=== PATIENT | female | born 1990 | race Caucasian/White ===

== ENCOUNTER 2016-12-30 16:18 | Emergency (ER) | payer SELFPAY ==
[2016-12-30 16:42] VITALS: BP 135/82; TEMP 101.8; O2SAT 97
[2016-12-30] MEDS ORDERED: DOXYCYCLINE HYCLATE CAP 100 MG CAP PO ONE (16:57)
[2016-12-30] MEDS ORDERED: SULFA/TRIMETH 800/160 (DS) TAB 1 EA TAB PO ONE (16:57)
[2016-12-30] MEDS ORDERED: cefTRIAXone SODIUM 1 GM VIAL IM ONE (16:57)
[2016-12-30] MEDS ORDERED: LIDOCAINE 1% 10 ML VIAL INJ ONE (17:34)
--- NOTE | 2016-12-30 17:37 | ED.PDOC ---
History of Present Illness - General Chief Complaint: Skin/Abrasion/Tear Stated Complaint: redness to leg Time Seen by Provider: 12/30/16 16:57 Source: patient Exam Limitations: no limitations - History of Present Illness Initial Comments: the patient is a 26-year-old female presenting to the emergency room secondary to fevers and a mild headache as well as what appears to be a mild cellulitis to the right lower extremity starting about 2 days ago. Oral intake has been fair. No vomiting. No diarrhea. No sick. Near-syncope. No meningeal signs. No altered mental status. She has not had any recent abscesses. Erythema to the right lower leg is circumferential and fairly extensive. There is increased heat. No evidence of any underlying abscess. The patient also has a area of approximately 10 cm in diameter to her proximal right thigh that also appears to have a mild cellulitis. No obvious abscess present there either. No other areas of cellulitis. The patient is in no acute distress. Severity: moderate Improving Factors: nothing Worsening Factors: nothing Associated Symptoms: fever/chills, malaise Allergies/Adverse Reactions: Allergies Amoxicillin [From Amoxil] Allergy (Verified 04/26/15 14:23) Home Medications: Ambulatory Orders Doxycycline (Monohydrate) [Doxycycline Monohydrate] 100 mg PO BID #10 cap Sulfa/Trimeth 800/160 (Ds) Tab [Bactrim DS Tab] 1 ea PO BID #10 tab 12/30/16 Review of Systems - Review of Systems Constitutional: States: fever, malaise EENTM: States: no symptoms reported Respiratory: States: no symptoms reported Cardiology: States: no symptoms reported Gastrointestinal/Abdominal: States: no symptoms reported Genitourinary: States: no symptoms reported Musculoskeletal: States: no symptoms reported Skin: States: see HPI Neurological: States: no symptoms reported Endocrine: States: no symptoms reported All other Systems: No Change from Baseline Past Medical History (General) - Patient Medical History Hx Seizures: No Hx Stroke: No Hx Cardiac Disorders: No Hx Congestive Heart Failure: No Hx Hypertension: No Hx Diabetes: No Hx MRSA: No - Vaccination History Hx Tetanus, Diphtheria Vaccination: Yes Hx Influenza Vaccination: No Hx Pneumococcal Vaccination: No - Social History Hx Tobacco Use: Yes - Female History Patient is a Female of Child Bearing Age (10 -59 yrs old): Yes Patient : No Family Medical History - Family History Mother Family History: No Known Living Status: Still Living Physical Exam - Physical Exam General Appearance: Alert, Comfortable, No apparent distress Eye Exam: bilateral normal Ears, Nose, Throat: hearing grossly normal, normal ENT inspection, normal pharynx Neck: non-tender, full range of motion, supple Respiratory: chest non-tender, lungs clear, normal breath sounds, no respiratory distress, no accessory muscle use Cardiovascular/Chest: normal peripheral pulses, regular rate, rhythm, no edema Peripheral Pulses: radial,right: 2+, radial,left: 2+, dorsalis pedis,right: 2+, dorsalis pedis,left: 2+, posterior tibialis,right: 2+, posterior tibialis,left: 2+ Gastrointestinal/Abdominal: normal bowel sounds, non tender, soft Rectal Exam: deferred Back Exam: normal inspection, no CVA tenderness, no vertebral tenderness Extremity: normal range of motion, no pedal edema, no calf tenderness, normal capillary refill, other - cellulitis as described above 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 She has been encouraged to trace out the erythema when she gets home and also take a picture with her cell phone after she does, for comparison in 1-2 days. The patient received a dose of Rocephin here as well as a dose of Bactrim and doxycycline. She will be placed on Bactrim and doxycycline for the next 5 days. She needs to follow up with her primary care doctor early next week for reevaluation. A blood culture has been performed. CBC showed a white count of 9000 only. Motrin and Tylenol can be used to help with the headache and fever. She needs to increase her fluid intake. ER warnings were given. - Results/Orders Results/Orders: Laboratory Tests 12/30/16 17:15 WBC 9.7 RBC 4.19 L Hgb 12.9 Hct 39.3 MCV 93.7 MCH 30.7 MCHC 32.9 L RDW 14.2 Plt Count 134 MPV 9.7 Absolute Neuts (auto) 8.00 H Absolute Lymphs (auto) 1.30 Absolute Monos (auto) 0.30 Absolute Eos (auto) 0.00 Absolute Basos (auto) 0.00 Neutrophils % 83.2 H Lymphocytes % 13.2 L Monocytes % 3.1 Eosinophils % 0.2 L Basophils % 0.3 blood culture has been performed. Departure - Departure Clinical Impression: Cellulitis Qualifiers: Site of cellulitis of extremity: lower extremity Laterality: right Disposition: Discharge to Home or Self Care Condition: Fair Departure Forms: ED Discharge - Pt. Copy, Patient Portal Self Enrollment Instructions: DI for Cellulitis -- Adult Diet: regular diet Activity: increase activity as tolerated Prescriptions: Doxycycline (Monohydrate) [Doxycycline Monohydrate] 100 mg PO BID #10 cap Sulfa/Trimeth 800/160 (Ds) Tab [Bactrim DS Tab] 1 ea PO BID #10 tab Home Medications: Ambulatory Orders Doxycycline (Monohydrate) [Doxycycline Monohydrate] 100 mg PO BID #10 cap Sulfa/Trimeth 800/160 (Ds) Tab [Bactrim DS Tab] 1 ea PO BID #10 tab 12/30/16 Additional Instructions: the patient is a 26-year-old female presenting with cellulitis of the right lower extremity. She has been encouraged to trace out the erythema when she gets home and also take a picture with her cell phone after she does, for comparison in 1-2 days. The patient received a dose of Rocephin here as well as a dose of Bactrim and doxycycline. She will be placed on Bactrim and doxycycline for the next 5 days. She needs to follow up with her primary care doctor early next week for reevaluation. A blood culture has been performed. CBC showed a white count of 9000 only. Motrin and Tylenol can be used to help with the headache and fever. She needs to increase her fluid intake. ER warnings were given.
== END 2016-12-30 17:45 | disposition home or self-care (01) ==
LOC: ER 16:18
DX: L03.115 Cellulitis of right lower limb (principal); Z87.891 Personal history of nicotine dependence; Z88.3 Allergy status to other anti-infective agents
CPT/HCPCS: 36415; 85025; 87040; J0696

== ENCOUNTER 2018-03-26 15:11 | Emergency (ER) | payer OTHER ==
[2018-03-26 15:42] VITALS: TEMP 97
[2018-03-26] MEDS ORDERED: SUCRALFATE 1 GM/10 ML 1 GM UD PO ONE (15:50)
[2018-03-26] MEDS ORDERED: ALUM & MAG HYDROX-SIMETHICONE 30 ML, LIDOCAINE VISCOUS 2% 15 ML PO ONE ×2 (15:50)
--- NOTE | 2018-03-26 15:53 | ED.PDOC ---
History of Present Illness - General Chief Complaint: GI Problem Stated Complaint: abdominal pain Time Seen by Provider: 03/26/18 15:50 Source: patient, RN notes reviewed Exam Limitations: no limitations Additional Information: 27 YEAR OLD COMPLAINTS OF PAIN IN THE UPPER ABDOMEN NON RADIATING NO ASSOCIATED NAUSEA VOMITING NO FEVER CHILLS NO INTOLERANCE TO FATTY MEAL HER PAIN IS AGGRAVATED BY SPICEY FOOD SHE HAS HABIT OF TAKING IBUPROFEN SHE HAS NO HISTORY OF BLACK STOOLS OR VOMITING BLOOD - History of Present Illness Timing/Duration: 24 hours Severity: moderate Improving Factors: nothing Worsening Factors: eating Associated Symptoms: denies symptoms Allergies/Adverse Reactions: Allergies Amoxicillin [From Amoxil] Allergy (Verified 03/26/18 15:37) Home Medications: Ambulatory Orders Ibuprofen 200 mg PO PRN 03/26/18 Pantoprazole Tablet [Protonix] 40 mg PO ACBK #1 tab 03/26/18 Review of Systems - Review of Systems Constitutional: States: no symptoms reported EENTM: States: no symptoms reported Respiratory: States: no symptoms reported Cardiology: States: no symptoms reported Gastrointestinal/Abdominal: States: no symptoms reported Genitourinary: States: no symptoms reported Musculoskeletal: States: no symptoms reported Skin: States: no symptoms reported Neurological: States: no symptoms reported Endocrine: States: no symptoms reported Hematologic/Lymphatic: States: no symptoms reported Past Medical History (General) - Patient Medical History Hx Seizures: No Hx Stroke: No Hx Cardiac Disorders: No Hx Congestive Heart Failure: No Hx Hypertension: No Hx Diabetes: No Hx MRSA: No Surgical History: other - Vaccination History Hx Tetanus, Diphtheria Vaccination: Yes Hx Influenza Vaccination: No Hx Pneumococcal Vaccination: No - Social History Hx Tobacco Use: Yes Hx Alcohol Use: Yes - socially, occasionally - Female History Patient : No Family Medical History - Family History Mother Family History: No Known Living Status: Still Living Physical Exam - Physical Exam General Appearance: Alert, Comfortable Eye Exam: bilateral normal, bilateral abnormal EOM, bilateral abnormal pupil, bilateral conjunctivae pale Ears, Nose, Throat: hearing grossly normal, normal ENT inspection, normal pharynx Neck: non-tender, full range of motion, supple Respiratory: chest non-tender, lungs clear, normal breath sounds, no respiratory distress, no accessory muscle use Cardiovascular/Chest: normal peripheral pulses, regular rate, rhythm, no edema, no gallop Peripheral Pulses: radial,right: 2+, radial,left: 2+, femoral,right: 2+, femoral ,left: 2+ Gastrointestinal/Abdominal: normal bowel sounds, soft, no organomegaly, no pulsatile mass, tenderness, other - EPIGASTRIC TENDERNESS NO OTHER SIGNS OF PERITONITIS Back Exam: normal inspection, no CVA tenderness, no vertebral tenderness Departure - Departure Clinical Impression: Abdominal pain, Acute gastritis Time of Disposition: 16:39 Disposition: Discharge to Home or Self Care Condition: Good Departure Forms: ED Discharge - Pt. Copy, Patient Portal Self Enrollment Prescriptions: Pantoprazole Tablet [Protonix] 40 mg PO ACBK #1 tab Home Medications: Ambulatory Orders Ibuprofen 200 mg PO PRN 03/26/18 Pantoprazole Tablet [Protonix] 40 mg PO ACBK #1 tab 03/26/18 Additional Instructions: NO MORE NSAID S
[2018-03-26] MEDS ORDERED: LIDOCAINE HCL 2% (MOUTH-THROAT) 15 ML UD ONE (15:58)
[2018-03-26] MEDS ORDERED: ALUM & MAG HYDROX-SIMETHICONE 30 ML UD ONE (15:58)
[2018-03-26 16:52] VITALS: BP 122/84; O2SAT 100
== END 2018-03-26 16:50 | disposition home or self-care (01) ==
LOC: ER 15:11
DX: K29.00 Acute gastritis without bleeding (principal); Z88.1 Allergy status to other antibiotic agents; Z87.891 Personal history of nicotine dependence

== ENCOUNTER 2018-11-21 20:03 | Emergency (ER) | payer SELFPAY ==
[2018-11-21 20:21] VITALS: TEMP 98.8; O2SAT 98
--- NOTE | 2018-11-21 20:29 | ED.PDOC ---
History of Present Illness - General Chief Complaint: Dental/Mouth Stated Complaint: rt side face swelling, tooth pain Time Seen by Provider: 11/21/18 20:22 Source: patient - History of Present Illness Initial Comments: Pt broke a molar on R mandible 2-3 days ago. Today pain became severe and radiates to her ear Timing/Duration: gradual Severity: severe EENT Location: dental Prearrival Treatment: over the counter meds - ibuprofen Improving Factors: nothing Worsening Factors: eating Associated Symptoms: facial pain/swelling Allergies/Adverse Reactions: Allergies Amoxicillin [From Amoxil] Allergy (Verified 11/21/18 20:22) Rash Penicillins Allergy (Verified 11/21/18 20:22) Rash Home Medications: Ambulatory Orders Ibuprofen 200 mg PO PRN 03/26/18 Clindamycin HCl 300 mg PO QID #28 cap 11/21/18 Tramadol HCl 50 mg PO Q4HWA PRN #20 tab 11/21/18 Review of Systems - Review of Systems Constitutional: Denies: chills, fever EENTM: States: mouth pain, mouth swelling. Denies: nose congestion, throat pain Respiratory: States: no symptoms reported. Denies: cough, short of breath Gastrointestinal/Abdominal: Denies: nausea, vomiting Past Medical History (General) - Patient Medical History Hx Seizures: No Hx Stroke: No Hx Dementia: No Hx Asthma: No Hx of COPD: No Hx Cardiac Disorders: No Hx Congestive Heart Failure: No Hx Pacemaker: No Hx Hypertension: No Hx Thyroid Disease: No Hx Diabetes: No Hx Renal Disease: No Hx Cancer: No Hx of HIV: No Hx Hepatitis C: No Hx MRSA: No Surgical History: cholecystectomy - Vaccination History Hx Tetanus, Diphtheria Vaccination: Yes Hx Influenza Vaccination: No Hx Pneumococcal Vaccination: No - Social History Hx Tobacco Use: Yes Hx Alcohol Use: Yes - socially, occasionally - Female History Patient : No Family Medical History - Family History Mother Family History: No Known Living Status: Still Living Physical Exam - Physical Exam General Appearance: Alert, Obvious distress Eye Exam: bilateral normal Nasal Exam: normal inspection Throat Exam: pharynx normal, dental tenderness - R posterior molar on mandible, other - no facial swelling Neck: non-tender, full range of motion, supple, lymphadenopathy (R) 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 Copy, Patient Portal Self Enrollment Prescriptions: Clindamycin HCl 300 mg PO QID #28 cap Tramadol HCl 50 mg PO Q4HWA PRN #20 tab PRN Reason: Moderate To Severe Pain Home Medications: Ambulatory Orders Ibuprofen 200 mg PO PRN 03/26/18 Clindamycin HCl 300 mg PO QID #28 cap 11/21/18 Tramadol HCl 50 mg PO Q4HWA PRN #20 tab 11/21/18
[2018-11-21] MEDS: HYDROcodone 10MG/APAP 325MG 1 EA TAB PO ONE (20:33)
[2018-11-21 20:49] VITALS: BP 129/79
== END 2018-11-21 20:49 | disposition home or self-care (01) ==
LOC: ER 20:03
DX: K02.9 Dental caries, unspecified (principal); Z87.891 Personal history of nicotine dependence; Z88.0 Allergy status to penicillin

== ENCOUNTER 2019-08-26 05:37 | Emergency (ER) | payer OTHER ==
[2019-08-26 05:55] VITALS: TEMP 97.6; O2SAT 99
--- NOTE | 2019-08-26 06:07 | ED.PDOC ---
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 Quality/Severity: moderate, sharpness Back Pain Location: lumbar spine Back Pain Radiation: buttocks Improving Factors: nothing Worsening Factors: nothing Associated Symptoms: denies symptoms Allergies/Adverse Reactions: Allergies Amoxicillin [From Amoxil] Allergy (Verified 08/26/19 05:55) Rash Penicillins Allergy (Verified 08/26/19 05:55) Rash Home Medications: Ambulatory Orders Baclofen 20 mg PO TID #10 tab 08/26/19 Naproxen [Naprosyn] 500 mg PO BID #10 tab 08/26/19 Review of Systems - Review of Systems Constitutional: States: no symptoms reported EENTM: States: no symptoms reported Respiratory: States: no symptoms reported Cardiology: States: no symptoms reported Gastrointestinal/Abdominal: States: no symptoms reported Genitourinary: States: no symptoms reported Musculoskeletal: States: see HPI Skin: States: no symptoms reported Neurological: States: no symptoms reported Endocrine: States: no symptoms reported Hematologic/Lymphatic: States: no symptoms reported Past Medical History (General) - Patient Medical History Hx Seizures: No Hx Stroke: No Hx Dementia: No Hx Asthma: No Hx of COPD: No Hx Cardiac Disorders: No Hx Congestive Heart Failure: No Hx Pacemaker: No Hx Hypertension: No Hx Thyroid Disease: No Hx Diabetes: No Hx Gastroesophageal Reflux: No Hx Renal Disease: No Hx Cancer: No Hx of HIV: No Hx Hepatitis C: No Hx MRSA: No Surgical History: cholecystectomy - Vaccination History Hx Tetanus, Diphtheria Vaccination: Yes Hx Influenza Vaccination: No Hx Pneumococcal Vaccination: No - Social History Hx Tobacco Use: Yes Hx Alcohol Use: Yes - socially, occasionally - Female History Hx Last Menstrual Period: 08/26/19 Patient : No Family Medical History - Family History Mother Family History: No Known Living Status: Still Living Physical Exam - Physical Exam General Appearance: Alert, Comfortable, Well Developed, Well Groomed, Well Hydrated, Well Nourished Eyes, Ears, Nose, Throat Exam: normal ENT inspection Neck Exam: non-tender, full range of motion, normal alignment, normal inspection Cardiovascular/Respiratory: regular rate, rhythm, no M/R/G Back Exam: normal inspection, no CVA tenderness, other - tenderness over the R lower paravertebral muscle Neurologic: no motor/sensory deficits, alert, normal mood/affect, oriented x 3 Skin Exam: normal color, warm/dry Departure - Departure Clinical Impression: Acute back pain Time of Disposition: 06:09 Disposition: Discharge to Home or Self Care Condition: Good Departure Forms: ED Discharge - Pt. Copy, Patient Portal Self Enrollment Instructions: DI for Low Back Pain Diet: resume usual diet Activity: increase activity as tolerated Prescriptions: Baclofen 20 mg PO TID #10 tab Naproxen [Naprosyn] 500 mg PO BID #10 tab Home Medications: Ambulatory Orders Baclofen 20 mg PO TID #10 tab 08/26/19 Naproxen [Naprosyn] 500 mg PO BID #10 tab 08/26/19 Additional Instructions: Follow up PCP in 1-2 days
[2019-08-26] MEDS ORDERED: KETOROLAC TROMETHAMINE INJ 30 MG/ML VIAL IM ONE (06:10)
[2019-08-26] MEDS ORDERED: MORPHINE SULFATE INJ 10 MG/ML VIAL IM ONE (06:12)
[2019-08-26 06:28] VITALS: BP 109/54
== END 2019-08-26 06:28 | disposition home or self-care (01) ==
LOC: ER 05:37
DX: M54.5 Low back pain (principal); Z87.891 Personal history of nicotine dependence; Z88.0 Allergy status to penicillin
CPT/HCPCS: J1885; J2270

== ENCOUNTER 2020-03-03 23:58 | Emergency (ER) | payer OTHER ==
[2020-03-04] MEDS ORDERED: SODIUM CHLORIDE 0.9% (FLUSH) 10 ML SYG IV PRN (00:04)
--- NOTE | 2020-03-04 00:40 | ED.PDOC ---
History of Present Illness - General Chief Complaint: Chest Pain/LA Stated Complaint: chest pain Time Seen by Provider: 03/04/20 00:04 Source: patient - History of Present Illness Initial Comments: 29-year-old female who presents with CC of chest pain. Reports onset yesterday and worsened today. She describes it as intermittent sharp pains which come and go throughout the day, were located to the right side of her chest yesterday but off now migrated also over to the left side of the chest and sometimes radiate to the right lateral chest wall and also to the upper back between the shoulder blades, typically last for a few minutes up to about 10 minutes and resolve spontaneously, seems to worsen with taking a deep breath but cannot think of any other exacerbating factors, not worsened with exertion or palpation. She did take ibuprofen 600 mg yesterday evening and reports improvement for about 3 hours at that time. She has not taken anything for relief today. She Allergies/Adverse Reactions: Allergies Amoxicillin [From Amoxil] Allergy (Verified 08/26/19 05:55) Rash Penicillins Allergy (Verified 08/26/19 05:55) Rash Home Medications: Ambulatory Orders Baclofen 20 mg PO TID #10 tab 08/26/19 Naproxen [Naprosyn] 500 mg PO BID #10 tab 08/26/19 Review of Systems - Review of Systems Review of Systems: 03/04/20 01:45 as per HPI All other Systems: Reviewed and Negative Past Medical History (General) - Patient Medical History Hx Seizures: No Hx Stroke: No Hx Dementia: No Hx Asthma: No Hx of COPD: No Hx Cardiac Disorders: No Hx Congestive Heart Failure: No Hx Pacemaker: No Hx Hypertension: No Hx Thyroid Disease: No Hx Diabetes: No Hx Gastroesophageal Reflux: No Hx Renal Disease: No Hx Cancer: No Hx of HIV: No Hx Hepatitis C: No Hx MRSA: No - Vaccination History Hx Tetanus, Diphtheria Vaccination: Yes Hx Influenza Vaccination: No Hx Pneumococcal Vaccination: No - Social History Hx Tobacco Use: Yes Hx Alcohol Use: Yes - socially, occasionally - Female History Hx Last Menstrual Period: 08/26/19 Patient : No Family Medical History - Family History Mother Family History: No Known Living Status: Still Living Physical Exam - Physical Exam General Appearance: Alert, Comfortable, No apparent distress Eye Exam: bilateral normal Ears, Nose, Throat: hearing grossly normal, normal ENT inspection, normal pharynx Neck: non-tender, full range of motion, supple, normal inspection Respiratory: chest non-tender, lungs clear, normal breath sounds, no respiratory distress, no accessory muscle use Cardiovascular/Chest: normal peripheral pulses, regular rate, rhythm, no edema, no gallop, no JVD, no murmur Peripheral Pulses: radial,right: 2+, radial,left: 2+ Gastrointestinal/Abdominal: normal bowel sounds, non tender, soft, no organomegaly Back Exam: normal inspection, no CVA tenderness, no vertebral tenderness Extremity: normal range of motion, non-tender, normal inspection, no pedal edema, no calf tenderness, normal capillary refill 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 Most likely musculoskeletal chest wall pain/costochondritis versus anxiety versus other. Consider also ACS. PE considered but patient rules out via PERC rule. Consider also pneumonia. -Obtain cardiac work-up, blood work, chest x-ray, EKG, place PIV, 1 L NS bolus, Toradol 30 mg IV 03/04/20 01:48 -Patient reports feeling already much better, she remained stable, vitals within normal limits. Labs reviewed and largely unremarkable including troponin level which is normal. Chest x-ray and EKG normal appearing as well. -Discussed diagnosis of musculoskeletal chest wall pain as well as continued home treatment plan. Will discharge to home in good condition, return warnings discussed. Efraín Partida MD Billing #[id number] 03/04/20 00:04 IV Care:Saline Lock per [facility] Telemetry .ONCE Sodium Chloride 0.9% (Flush) [Saline Flush Syringe] 10 ml IV PRN PRN 03/04/20 00:15 EKG STAT 03/04/20 00:58 Sodium Chloride 0.9% 1000ML [Ns 1000 ml] 1,000 ml IVS ONCE 03/04/20 09:00 Pulse Ox Daily Laboratory Results - last 24 hr 03/04/20 03/04/20 03/04/20 00:25 00:25 00:25 WBC 7.8 RBC 4.35 Hgb 13.5 Hct 39.2 MCV 90.3 MCH 31.2 H MCHC 34.5 RDW 13.6 Plt Count 221 MPV 9.6 Absolute Neuts (auto) 3.80 Absolute Lymphs (auto) 3.00 Absolute Monos (auto) 0.70 Absolute Eos (auto) 0.30 Absolute Basos (auto) 0.00 Neutrophils % 48.5 Lymphocytes % 38.6 Monocytes % 8.7 Eosinophils % 3.6 Basophils % 0.6 Sodium Potassium Chloride Carbon Dioxide Anion Gap BUN Creatinine BUN/Creatinine Ratio Random Glucose Serum Osmolality Calcium Troponin I < 0.02 B-Natriuretic Peptide < 15.0 03/04/20 00:25 WBC RBC Hgb Hct MCV MCH MCHC RDW Plt Count MPV Absolute Neuts (auto) Absolute Lymphs (auto) Absolute Monos (auto) Absolute Eos (auto) Absolute Basos (auto) Neutrophils % Lymphocytes % Monocytes % Eosinophils % Basophils % Sodium 138 Potassium 3.6 Chloride 105 Carbon Dioxide 24 Anion Gap 12.6 BUN 14 Creatinine 0.67 BUN/Creatinine Ratio 20.9 H Random Glucose 101 Serum Osmolality 276.3 Calcium 9.0 Troponin I B-Natriuretic Peptide - EKG/XRAY/CT EKG: Sinus - Heart rate 80, no ST elevations or Q waves noted, axis normal, intervals normal, no prior EKG for comparison. XRAY: chest - No acute processes per my read Departure - Departure Clinical Impression: Musculoskeletal chest pain Time of Disposition: 01:43 Disposition: Discharge to Home or Self Care Condition: Good Departure Forms: ED Discharge - Pt. Copy, Patient Portal Self Enrollment Instructions: DI for Chest Pain, Costochondritis (DC) Diet: resume usual diet Activity: increase activity as tolerated Home Medications: Ambulatory Orders Baclofen 20 mg PO TID #10 tab 08/26/19 Naproxen [Naprosyn] 500 mg PO BID #10 tab 08/26/19 Additional Instructions: Remain well-hydrated and gradually advance your activity level as tolerated. Continue to take [id number] anti-inflammatory such as ibuprofen 600 mg every 6 hours and Tylenol 650 mg every 6 hours as needed for pain. Return to the ED if your symptoms worsen or other concerning symptoms develop such as shortness of breath, worsening chest pain, etc. Follow-up with your primary care physician in the next 1 to 2 weeks or sooner as needed
--- NOTE | 2020-03-04 00:45 | RAD ---
EXAM DESCRIPTION: Chest,1 View CLINICAL HISTORY: 29 years Female, chest pain COMPARISON: None TECHNIQUE: Single AP chest radiograph. FINDINGS: Clear lungs. No pneumothorax or pleural effusion. Normal cardiomediastinal contour. Normal osseous structures. IMPRESSION: 1. No discrete active cardiopulmonary process. Electronically signed by: Joe Maier MD 03/04/2020 12:44 AM CDT
[2020-03-04] MEDS ORDERED: KETOROLAC TROMETHAMINE INJ 30 MG/ML VIAL IV ONE (00:58)
[2020-03-04] MEDS ORDERED: SODIUM CHLORIDE 0.9% 1000ML 1,000 ML IVS ONE (00:58)
[2020-03-04 02:18] VITALS: BP 128/80
[2020-03-04 02:23] VITALS: TEMP 97.9; O2SAT 99
== END 2020-03-04 02:00 | disposition home or self-care (01) ==
LOC: ER 23:58
CPT/HCPCS: 36415; 71045; 80048; 83880; 84484; 85025; 93005; A4216; J1885; J7030